=== PATIENT | male | born 1970 | race Caucasian/White ===

== ENCOUNTER 2017-02-07 09:44 | Emergency (ER) | END 2017-02-07 18:44 | disposition home or self-care (01) | DX: R55 Syncope and collapse (principal) | CPT/HCPCS: 36415; 70450; 80048; 81003; 83605; 85025; 93005; 96374; J1953; J7030; Z7502 ==

== ENCOUNTER 2017-04-30 08:25 | Emergency (ER) | payer MEDICAID ==
[~2017-04-30] VITALS: Ht 188 cm; Wt 76.2 kg
[~2017-04-30 08:25] MED LIST: LEVE-5 PO
[2017-04-30 08:27] VITALS: Ht 188 cm; Wt 76.2 kg
[2017-04-30] MEDS ORDERED: CEPH-443 PO (09:47)
[2017-04-30] MEDS ORDERED: IBUP-1542 PO (09:47)
[2017-04-30] MEDS ORDERED: SULF1TAB31 PO (09:47)
--- NOTE | 2017-04-30 09:57 | ERD ---
ER Documentation Chief Complaint Chief Complaint c/o spider bite on head HPI This is a 47-year-old male that presents to the ER stating that he has 2 bug bites to the back of the scalp. Patient noticed these a couple days ago. Area is painful, pain is nonradiating and throbbing in quality. Patient denies any chest pain, shortness of breath, fevers or chills. Admits to drinking alcohol and smoking marijuana he denies any other illicit drug use. ROS 12 point review of systems was done, all negative except per HPI. Medications Home Meds Active Scripts Ibuprofen* (Motrin*) 600 Mg Tab, 600 MG PO Q6, #30 TAB Prov:YUNIOR SONI C 04/30/17 Cephalexin* (Keflex*) 500 Mg Capsule, 500 MG PO BID for 7 Days, CAP Prov:YUNIOR SONI C 04/30/17 Sulfamethoxazole/Trimethoprim* (Bactrim Ds* Tablet) 1 Each Tablet, 1 TAB PO BID , #14 TAB Prov:YUNIOR SONI Gia 04/30/17 Levetiracetam* (Keppra*) 500 Mg Tablet, 500 MG PO BID for 30 Days, TAB Prov:DEBBY MENESES DO 02/07/17 Allergies Allergies: Coded Allergies: No Known Allergy (Unverified , 02/07/17) PMhx/Soc Hx Miscellaneous Medical Probl: Yes (SEIZURES) Hx Alcohol Use: Yes Hx Substance Use: Yes Hx Tobacco Use: No Smoking Status: Current some day smoker Physical Exam Vitals Vital Signs Date Time Temp Pulse Resp B/P Pulse Ox O2 Delivery O2 Flow Rate FiO2 04/30/17 08:27 97.7 68 18 138/78 98 Physical Exam GENERAL: The patient is well developed and appropriate for usual state of health , in no apparent distress. HEENT: Atraumatic. There is a 2 cm x 2 cm round indurated abscess with some scabbing. There is a smaller 0.5 cm x 0.5 cm pustular lesion directly below bigger abscess. CHEST: Clear to auscultation bilaterally. There are no rales, wheezes or rhonchi. HEART: Regular rate and rhythm. No murmurs, clicks, rubs or gallops. NEURO: Alert and oriented Procedures/MDM This is a 47-year-old male presents to the ER stating that he has 2 pet bites to the back of his scalp. Patient does shave his scalp, patient's lesions appear to be arterial infections likely caused by staff. Patient may also have a little bit of folliculitis. Patient will be sent home with Bactrim and Keflex. At this time patient is afebrile and extremely well-appearing, suspicion for systemic infection is low. I do not believe that this abscess needs to be drained as it is indurated and not fluctuant. Patient is to follow- up with his primary care doctor within 1-2 days return to ER sooner if symptoms worsen. My medical decision making shared with the patient he understands and agrees with plan. Departure Diagnosis: Primary Impression: Abscess Condition: Stable Patient Instructions: Abscess, Antiobiotic Treatment Only Additional Instructions: Call your primary care doctor TOMORROW for an appointment during the next 1-2 days.See the doctor sooner or return here if your condition worsens before your appointment time. YUNIOR SONI Apr 30, 2017 09:57
== END 2017-04-30 10:01 | disposition home or self-care (01) ==
LOC: FTE 08:25
DX: L02.811 Cutaneous abscess of head [any part, except face] (principal); F17.210 Nicotine dependence, cigarettes, uncomplicated
CPT/HCPCS: 99284

== ENCOUNTER 2017-06-11 05:07 | Emergency (ER) | END 2017-06-11 08:05 | disposition home or self-care (01) ==

== ENCOUNTER 2017-06-14 00:07 | Emergency (ER) | END 2017-06-14 05:03 | disposition home or self-care (01) ==

== ENCOUNTER 2017-06-21 14:00 | Emergency (ER) | END 2017-06-21 17:30 | disposition left against medical advice (07) ==